=== PATIENT | male | born 1955 | race Caucasian/White ===

== ENCOUNTER 2022-03-31 09:30 | Outpatient (RCR) | payer MEDICARE, OTHER, BC, SELFPAY | END 2022-05-15 08:36 | disposition home or self-care (01) | PROVIDERS: PCP Family Medicine; Visit Provider Internal Medicine | DX: R15.1 Fecal smearing (principal) | CPT/HCPCS: 97110; 97140; 97535 ==

== ENCOUNTER 2023-12-06 09:16 | Outpatient (CLI) | payer MEDICARE, BC, SELFPAY ==
--- NOTE | 2023-12-06 11:01 | W.ANESCHARGE ---
Anesthesia Charges Start Date/Time Anesthesia Start Date: 12/06/23 Anesthesia Start Time: 10:40 Stop Date/Time Anesthesia Stop Date: 12/06/23 Anesthesia Stop Time: 11:00
== END 2023-12-06 09:17 | disposition home or self-care (01) ==
LOC: OP CLINIC 09:17
PROVIDERS: PCP Family Medicine; Visit Provider Internal Medicine Gastroenterology
DX: D50.9 Iron deficiency anemia, unspecified (principal); K31.89 Other diseases of stomach and duodenum
CPT/HCPCS: 00731; 43239; 88305; J2704

== ENCOUNTER 2025-04-18 14:42 | Emergency (ER) | payer MEDICARE, BC, SELFPAY ==
--- OUTSIDE RECORDS SUMMARY | 2025-04-18 14:44 | XMS_ITS | Encounter Summary ---
Author Organization [place] Address [address] [place] [address]. [place] [address] Care Team Providers Care Status Controller Name Role Phone Cristian Rangel MD Primary Care Provider +1- [phone] Mary Liu MD Unavailable Encounter Details Date Type Department Care Team (Late st Contact Info) Description 12/20/2024 [facility] Medical Advice [facility] [address] [address] Mary Liu MD [address] [address] Social History Tobacco Use Types Packs/Day Years Used Date Smoking Tobacco: Never Smokeless Tobacco: Never PHQ-2 Answer Date Recorded PHQ-2 Score 0 11/30/2024 Sex and Gender Information Value Date Recorded Sex Assigned at Not on file 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 Gender Identity Not on file Sexual Orientation Not on file documented as of this encounter Miscellaneous Notes * Telephone Encounter - Mary Liu MD - 12/21/2024 8:34 AM CDT Sounds good - can cancel defo documented in this encounter Plan of Treatment Not on file documented as of this encounter Visit Diagnoses Not on filedocumented in this encounter Care Teams Status Controller Relationship Specialty Start Date End Date Cristian Rangel MD [address] [facility] [address] PCP - General Family Medicine 11/06/24 Mary Liu MD [address] Kristy Reid [facility] [address] [place] [address] Assigned Surgical Provider 12/27/24 documented as of this encounter
--- OUTSIDE RECORDS SUMMARY | 2025-04-18 14:44 | XMS_ITS | Clinical Summary ---
Author Organization [employer] Address [address] [place] [address] Care Team Providers Care Electronic Equipment Repairer Name Role Phone Cristian Rangel MD Primary Care Provider +1- [phone] Allergies Active Allergy Reactions Criticality Noted Date Comments Bee Venom Protein (Honey Bee) Hives 2009 Iodinated Contrast Media Nausea And Vomiting Fentanyl Nausea And Vomiting 05/21/2010 Hymenoptera Allergenic Extract Anaphylaxis,Hives 11/13/2010 Honey Bees Latex, Natural Rubber Rash 2017 Medications apixaban (Eliquis) 5 mg tabletIndication s:PAF (paroxysmal atrial fibrillation) (HC) Take 1 Tablet (5 mg) by mouth two times daily. 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 Celiac disease 08/13/2023 Disorder of pelvis 01/23/2022 Constipation due to outlet obstruction 9 External hemorrhoids 08/17/2019 Incontinence of feces 08/17/2019 Bee sting allergy 03/25/2018 RLL Lung nodule 08/01/2010 Overview (08/01/2010): 07/24/10 MR pulmonary gram: 21 x 21mm RLL round peripherally based nodule Atrial fibrillation 06/19/2010 Overview (01/03/2024): S/P complex atrial fibrillation ablation with Dr Miller 08/05/2010 Rectal prolapse 04/28/2010 Abnormal EKG 03/17/2010 Adenomatous polyp of colon Overview (07/17/2020): Colonoscopy 05/2015 polyp repeat in 5 years Colonoscopy 07/2020 normal, repeat in 5 years SVT (supraventricular tachycardia) Overview (04/11/2010): -04/11/2010 EPS - not able to induce SVT, but onset of persistent atrial fibrillation *DCCV in EP lab unsuccessful *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) Resolved Problems Problem Noted Date Diagnosed Date Resolved Date Anticoagulation monitoring, INR range 2-3 07/20/2014 09/16/2015 Encounters Date Type Department Care Team Description 04/18/2025 Nurse Triage [facility] [address] [place] [address] Cristian Rangel MD Blood In Stool 04/18/2025 Telephone [facility] [address] [place] [address] Cristian Rangel MD Lab 04/18/2025 Telephone [facility] [address] [place] [address] Antione Miller MD Concerns 04/05/2025 Telephone [facility] [address] [place] [address] Antione Miller MD Sob 02/28/2025 Telephone [facility] [address] [place] [address] Cristian Rangel MD Follow Up (Phone call to check on how his wound is healing. ) 02/22/2025 1:00 PM CDT Nurse/Clinic Staff Only [facility] [address] [place] [address] Follow Up (Dressing change to back) 02/22/2025 Travel 02/20/2025 10:00 AM CDT Nurse/Clinic Staff Only [facility] [address] [facility] [place] [address] Follow Up (Dressing change on back) 02/20/2025 Travel 02/18/2025 Telephone [facility] [address] [facility] [address] Cristian Rangel MD Results 02/16/2025 10:00 AM CDT Nurse/Clinic Staff Only [facility] [address] [place] [address] Dressing Change 02/15/2025 Travel 02/14/2025 2:00 PM CDT Office Visit [facility] [place] [address] Cristian Rangel MD Derm Problem (Recheck lump on back - getting larger (has been there for a long time now, but it's starting to grow)) 02/14/2025 Travel 01/25/2025 Travel 01/24/2025 Travel 01/24/2025 Telephone [facility] [address] [facility] [address] Cristian Rangel MD Results 01/22/2025 2:00 PM CDT Office Visit [facility] [place] [address] Cristian Rangel MD Gi Problem (Needs confirmatory testing for giardia) 01/22/2025 Travel 01/20/2025 Travel from Last 3 Months Immunizations Immunization Administration Dates Next Due HepA-HepB (Twinrix) 10/27/2005,09/23/2005 Influenza, High-dose Quadrivalent Inactivated Influenza, IIV4 (=>6mos) MDV 06/18/2020 Influenza,CCIIV4 PRESERV FREE 08/20/2021 RSV, Recombinant ADJ Reconst ituted (Arexvy 120MCG/0.5mL) 10/11/2023 Td (Age >=7 Years) 04/10/1999 Tdap 05/03/2020,10/14/2009 Zoster (Shingrix-RZV, recombinant) 07/22/2020, Family History Medical History Relation Name Comments Other Father Sarcoidosis at age 36; he of this and heart strain at 76 Arthritis Mother Other Mother of old age at 95 Heart Disease Paternal Grandfather a t 78 Heart Disease Paternal Grandmother a t 82 Atrial fibrillation Sister 1 Awa Other Sister 1 Awa Benign tumor re moved from heart chamber AGE 52 Alcoholism Sister 2 Katheleen Depression Sister 2 Katheleen Osteoporosis Sister 4 Leonie Other Sister 4 Leonie hemorrhoids, gl uten and dairy intolerance Relation Name Status Comments Brother Krish Alive Father Mother Paternal Grandfather Paternal Grandmother Sister 1 Awa Alive Sister 2 Katheleen Alive Sister 3 Berto Alive Sister 4 Leonie Alive Social History Tobacco Use Types Packs/Day Years Used Date Smoking Tobacco: Never Smokeless Tobacco: Never Tobacco Cessation:Counseling Given: Yes Alcohol Use Standard Drinks/Week Comments Yes 2 (1 standard drink = 0.6 oz pur e alcohol) PHQ-2 Answer Date Recorded PHQ-2 TOTAL SCORE 0 07/11/2024 Social Connections Answer Date Recorded Do you often feel lonely or isolated from those around you? 0 01/21/2025 Alcohol Use Answer Date Recorded How often do you have a drink containing alcohol ? 2 02/14/2025 How many drinks containing a lcohol do you have on a typical day when you are drinking? 0 02/14/2025 How often do you have five or more drinks on one occasion? 0 02/14/2025 Financial Resource Strain Answer Date R ecorded Difficulty of Paying Living Expenses 3 01/22/2025 Difficulty of Paying Living Expenses Not on file 01/22/2025 Food Insecurity Answer Date Recorded Do you worry your food will run out before you are able to buy more? 1 01/21/2025 Transportation Needs Answer Date Record ed Does lack of transportation keep you from medica l appointments? 1 01/21/2025 Does lack of transportation keep you from work, meetings or getting things that you need? 1 01/21/2025 Housing Stability Answer Date Recorded What is your housing situation today? 1 01/21/2025 Utilities Answer Date Recorded Do you have trouble paying f or utilities (for example, heat, electricity, water, phone)? 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 Gender Identity Not on file Sexual Orientation Not on file Occupation Industry Job Start Date Job End Date Retired Not on file Not on file Not on file Obstetrics History Last Filed Vital Signs Vital Sign Reading Time Taken Comments Blood Pressure 111/65 02/14/2025 2:12 PM CDT Pulse 45 02/14/2025 2:12 PM CDT Temperature 36.2 C (97.2 F) 02/14/2025 2:12 PM CDT Respiratory Rate 16 11/21/2021 10:29 AM CDT Oxygen Saturation 100% 02/14/2025 2:12 PM CDT Inhaled Oxygen Concentration - - Weight 78.6 kg (173 lb 3.2 oz) 02/14/2025 2:12 P M CDT Height 183.6 cm (6' 0.28) 01/10/2025 9:10 AM CD T Body Mass Index 23.31 01/10/2025 9:10 AM CDT Plan of Treatment Health Maintenance Due Date Last Done Comments Pneumococcal series for age 50+ (1 of 2 - PCV) 01/13/1976 Hepatitis B series for 19+ ( 3 of 3 - Hep B Twinrix 3-dose series) 03/26/2006 10/27/2005, 09/23/2005 COVID-19 vaccine series ( season) 2024 07/30/2023, 06/04/2022, 01/19/2022, Additional history exists Influenza Vaccine (#1) 2025 08/20/2021, 2019 Depression screening for age 12+ 07/11/2025 07/11/2024, 08/13/2023, 08/13/2023, Additional history exists Medicare Wellness for age 65+ 07/12/2025 07/11/2024 Colonoscopy through age 75 07/17/202507/17, 07/17/2020, 07/17/2020, Additional history exists BMI (ht and wt on same day) for age 18+ 01/10/2026 01/10/2025, 07/11/2024, 03/15/2024, Additional history exists Lipids for age 45-75 01/22/2030 01/22/2025, 10/11/2024, 11/08/2023, Additional history exists Tetanus booster 05/03/2030 05/03/2020, 04/2010, 04/10/1999 Zoster (shingles) series for age 50+ Completed 07/22/2020, 04/25/2020 Hepatitis C screening for ag e 18-79 Completed 05/18/2023 RSV vaccine for adults or Completed 10/11/2023 Procedures Procedure Name Priority Date/Time Associated Diagnosis Comments AEROBIC BACTERIAL CULTURE, STAIN Routine 02/14/2025 3:09 PM CDT Back abscess CRYPTOSPORIDIUM GIARDIA RAPID ANTIGEN Routine 01/25/2025 10:36 AM CDT Rectal bleeding PSA TOTAL Routine 01/22/2025 2:55 PM CDT Prostate cancer screening HOMOCYSTEINE,TOTAL Routine 01/22/2025 2: 55 PM CDT Elevated homocysteine CBC WITH AUTO DIFFERENTIAL Routine 01/22/2025 2:55 PM CDT Other iron deficiency anemia VITAMIN D 25 (DEFICIENCY) Routine 01/22/2025 2:55 PM CDT Vitamin D deficiency LIPID PANEL W REFLEX MEASURED LDL Routine 01/22/2025 2:55 PM CDT Other hyperlipidemia ANTI HCV Routine 05/18/2023 9:08 AM CDT Unexplained weight loss COLONOSCOPY SCREENING Routine 07/17/2020 9:00 AM CONSTRUCTION RIGGER History of colon polyps from Last 3 Months or Most Recently Relevant to Health Maintenance Results * (ABNORMAL) AEROBIC BACTERIAL CULTURE, STAIN (02/14/2025 3:09 PM CDT) CULTURE RESULT(A) 02/19/2025 10:35 AM CDT [facility] TRAL LABORATORY CULTURE 1+ Mixed luba present 02/19/2025 10:35 AM CDT [facility] TRAL LABORATORY GRAM STAIN 3+ Epithelial cells 02/19/2025 10:35 AM CDT [facility] TRAL LABORATORY GRAM STAIN 2+ RBCs 02/19/2025 10:35 AM CDT [facility] TRAL LABORATORY GRAM STAIN 2+ PMNs 02/19/2025 10:35 AM CDT [facility] TRA LABORATORY GRAM STAIN 2+ Gram Positive Cocci 02/19/2025 10:35 AM CDT [facility] LABOR[facility]ORY Other (Other) Non-Blood / Unknown 02/14/2025 3:09 PM CDT 02/14/2025 3:09 PM CDT Narrative [facility] - 02/19/2025 10:35 AM CDT Mixed luba, No Staphylococcus aureus, beta- Streptococcus, Streptococcus pneumoniae, or Pseudomonas aeruginosa. us Cristian Rangel MD MICROBIOLOGY Final Resu lt [facility] [address] [place] [address], * CRYPTOSPORIDIUM GIARDIA RAPID ANTIGEN (01/25/2025 10:36 AM CDT) [facility] GIARDIA AND CRYPTOSPORIDIUM ANTIGEN PANEL SEE NOTE [facility] Comment: CRYPTOSPORIDIUM ANTIGEN, EIA Micro Number: [id number] Test Status: Final Specimen Source: Stool Specimen Quality: Adequate Cryptosporidium: Not Detected Reference Range: Not Detected NOTE: Due to intermittent shedding, one negative sample does not necessarily rule out the presence of a parasitic infection. GIARDIA AND CRYPTOSPORIDIUM ANTIGEN PANEL SEE NOTE [facility] Comment: GIARDIA AG, EIA, STOOL Micro Number: [id number] Test Status: Final Specimen Source: Stool Specimen Quality: Adequate Giardia Result 1: Not Detected Reference Range: Not Detected NOTE: Due to intermittent shedding, one negative sample does not necessarily rule out the presence of a parasitic infection. Stool STOOL SPECIMEN / Unknown 01/25/2025 10:36 AM CDT 01/25/2025 10:36 AM CDT Narrative [facility] - 01/30/2025 10:13 AM CDT SPLIT 01/22/2025 FROM [id number] us Cristian Rangel MD MICROBIOLOGY Final Resu lt [place] [address] [address], [place] [phone] [facility] [address] [place] [address] * (ABNORMAL) LIPID PANEL W REFLEX MEASURED LDL (01/22/2025 2:55 PM CDT) [facility] CHOLESTEROL, TOTAL 204(H) <200 mg/dL [facility] HDL CHOLESTEROL 70 > OR = 40 mg/dL [facility] TRIGLYCERIDES 44 <150 mg/dL [facility] LDL-CHOLESTEROL 121(H) mg/dL (calc) [facility] Comment: Reference range: <100 Desirable range <100 mg/dL for primary prevention; <70 mg/dL for patients with CHD or diabetic patients with > or = 2 CHD risk factors. LDL-C is now calculated using the Lovely calculation, which is a validated novel method providing better accuracy than the Friedewald equation in the estimation of LDL-C. Santino SS et al. DAVID. 2013;310(19): 2977-9329 (http://education.[employer]/faq/HFL710) CHOL/HDLC RATIO 2.9 <5.0 (calc) [facility] NON HDL CHOLESTEROL 134(H) <130 mg/dL (calc) [facility] Comment: For patients with diabetes plus 1 major ASCVD risk factor, treating to a non-HDL-C goal of <100 mg/dL (LDL-C of <70 mg/dL) is considered a therapeutic option. Blood BLOOD SPECIMEN / Unknown 01/22/2025 2:55 PM CDT 01/22/2025 2:57 PM CDT Narrative [facility] - 01/23/2025 4:43 AM CDT FASTING:YES COLLECTION KIT GIVEN TO PATIENT. PATIENT ADVISED TO RETURN. FASTING: YES us Cristian Rangel MD CHEMISTRY Final Resu lt [facility] [address] [place] [address], [facility] [address] [place] [address] * VITAMIN D 25 (DEFICIENCY) (01/22/2025 2:55 PM CDT) Pathologist [facility] VITAMIN D,25-OH,TOTAL,IA 75 30 - 100 ng/mL [facility] Comment: Vitamin D Status 25-OH Vitamin D: Deficiency: <20 ng/mL Insufficiency: 20 - 29 ng/mL Optimal: > or = 30 ng/mL For 25-OH Vitamin D testing on patients on D2-supplementation and patients for whom quantitation of D2 and D3 fractions is required, the QuestAssureD(TM) 25-OH VIT D, (D2,D3), LC/MS/MS is recommended: order code 28891 (patients >2yrs). See Note 1 Note 1 For additional information, please refer to http://education.[employer]/faq/OAK989 (This link is being provided for informational/ educational purposes only.) Blood BLOOD SPECIMEN / Unknown 01/22/2025 2:55 PM CDT 01/22/2025 2:57 PM CDT Narrative [facility] - 01/23/2025 6:53 AM CDT FASTING:YES COLLECTION KIT GIVEN TO PATIENT. PATIENT ADVISED TO RETURN. FASTING: YES us Cristian Rangel MD SEND OUTS Final Resu lt [place] [facility] [address] [place] [address], [facility] [address] [place] [address] * (ABNORMAL) CBC AND DIFFERENTIAL (01/22/2025 2:55 PM CDT) [facility] WHITE BLOOD CELL COUNT 3.7(L) 3.8 - 10.8 Thousand/u L [facility] RED BLOOD CELL COUNT 3.96(L) 4.20 - 5.80 Million/uL [facility] HEMOGLOBIN 11.8(L) 13.2 - 17.1 g/dL [facility] HEMATOCRIT 36.2(L) 38.5 - 50.0 % [facility] MCV 91.4 80.0 - 100.0 fL [facility] MCH 29.8 27.0 - 33.0 pg [facility] MCHC 32.6 32.0 - 36.0 g/dL [facility] Comment: For adults, a slight decrease in the calculated MCHC value (in the range of 30 to 32 g/dL) is most likely not clinically significant; however, it should be interpreted with caution in correlation with other red cell parameters and the patient's clinical condition. RDW 12.0 11.0 - 15.0 % [facility] PLATELET COUNT 235 140 - 400 Thousand/u L [facility] MPV 9.8 7.5 - 12.5 fL [facility] ABSOLUTE NEUTROPHILS 1,898 1,500 - 7,800 cells/uL [facility] ABSOLUTE LYMPHOCYTES 1,228 850 - 3,900 cells/uL [facility] ABSOLUTE MONOCYTES 385 200 - 950 cells/uL [facility] ABSOLUTE EOSINOPHILS 170 15 - 500 cells/uL [facility] ABSOLUTE BASOPHILS 19 0 - 200 cells/uL [facility] NEUTROPHILS 51.3 % [facility] LYMPHOCYTES 33.2 % [facility] MONOCYTES 10.4 % [facility] EOSINOPHILS 4.6 % [facility] BASOPHILS 0.5 % [facility] Blood BLOOD SPECIMEN / Unknown 01/22/2025 2:55 PM CDT 01/22/2025 2:57 PM CDT Narrative [facility] - 01/23/2025 4:16 AM CDT FASTING:YES COLLECTION KIT GIVEN TO PATIENT. PATIENT ADVISED TO RETURN. FASTING: YES us Cristian Rangel MD HEMATOLOGY Final Resu lt [facility] [employer] [facility] [address] [place] [address], [place] [phone] [facility] [address] [place] [address] * PSA TOTAL (DIAGNOSTIC) (01/22/2025 2:55 PM CDT) PSA, TOTAL 0.37 < OR = 4.00 ng/mL [facility] Comment: The total PSA value from this assay system is standardized against the WHO standard. The test result will be approximately 20% lower when compared to the equimolar-standardized total PSA (Greg Zakiya). Comparison of serial PSA results should be interpreted with this fact in mind. This test was performed using the Siemens chemiluminescent method. Values obtained from different assay methods cannot be used interchangeably. PSA levels, regardless of value, should not be interpreted as absolute evidence of the presence or absence of disease. Blood BLOOD SPECIMEN / Unknown 01/22/2025 2:55 PM CDT 01/22/2025 2:57 PM CDT Narrative [facility] - 01/23/2025 6:53 AM CDT FASTING:YES COLLECTION KIT GIVEN TO PATIENT. PATIENT ADVISED TO RETURN. FASTING: YES us Cristian Rangel MD CHEMISTRY Final Resu lt [place] [facility] [address] [place] [address], [facility] [address] [place] [address] * HOMOCYSTEINE,TOTAL (01/22/2025 2:55 PM CDT) HOMOCYSTEINE 7.9 < or = 15.2 umol/L [facility] Comment: Homocysteine is increased by functional deficiency of folate or vitamin B12. Testing for methylmalonic acid differentiates between these deficiencies. Other causes of increased homocysteine include renal failure, folate antagonists such as methotrexate and phenytoin, and exposure to nitrous oxide. Garrick Rodriguez et al., [employer] Med. 1999;131(5):331-9. Blood BLOOD SPECIMEN / Unknown 01/22/2025 2:55 PM CDT 01/22/2025 2:57 PM CDT Narrative [facility] - 01/23/2025 7:51 PM CDT FASTING:YES COLLECTION KIT GIVEN TO PATIENT. PATIENT ADVISED TO RETURN. FASTING: YES Cristian Rangel MD CHEMISTRY Final Resu lt Performing Organization Address City/[facility]/ZIP Co de Phone Number [facility] [address] [place] [address], [facility] [address] [place] [address] * ANTI HCV (05/18/2023 9:08 AM CDT) Pathologist [facility] HEPATITIS C ANTIBODY Non-Reacti ve Non-React radha 05/19/2023 2:34 PM CDT [facility] Comment:Please note, per www .CDC.gov: If a patient is known to be at high risk of HCV infection, or is symptomatic, and the physician's suspicion of HCV infection is high, HCV RNA testing is often employed and is of diagnostic value, even after an initial negative anti-HCV test result. Blood BLOOD SPECIMEN / Unknown Venipuncture / Unknown 05/18/2023 9:08 AM CDT 05/18/2023 9:08 AM CDT Cristian Rangel MD SEND OUTS Final Resu lt Performing Organization Address City/[facility]/ZIP Co de Phone Number [facility] SENDOUT INTERNAL ZIP [phone] [place] [id number] * COLONOSCOPY SCREENING (07/17/2020 9:00 AM CONSTRUCTION RIGGER) Cristian Rangel MD GI PROCEDURE ORD Final Res ult from Last 3 Months or Most Recently Relevant to Health Maintenance Insurance [employer] BLUE MR PB ONLY Advance Directives Documents on File Type Date Recorded Patient Phlebotomy Lab Assistant Expl anation Healthcare Directive 04/11/2010 * Full Code (Latest Code Status on File) Date Activated Date Inactivated Comments 11/05/2021 12:47 PM 11/06/2021 1:33 PM Question Answer Comments Code Status Discussion: Other (specify in commen ts): * Full Code Date Activated Date Inactivated Comments 10/08/2021 9:39 AM 10/08/2021 1:34 PM Question Answer Comments Code Status Discussion: Other * Full Code Date Activated Date Inactivated Comments 08/05/2010 6:52 AM 08/06/2010 2:28 PM * Full Code Date Activated Date Inactivated Comments 04/11/2010 6:38 AM 04/12/2010 4:36 PM Care Teams Electronic Equipment Repairer Relationship Specialty Start Date End Date Cristian Rangel [facility] [address] P[facility] - General Family Practice 08/02/23
--- OUTSIDE RECORDS SUMMARY | 2025-04-18 14:44 | XMS_ITS | Clinical Summary ---
Author Organization [facility] Address [address] [place] [id number] Care Team Providers Care Ground Crew Chief Name Role Phone Elsewhere, Pcp Primary Care Provider Unavailabl e Source Comments Patient records contain information from all sites at [facility]. For routine questions regarding patient records, call [phone] during business hours, M-F 8:00 AM - 5:00 PM Central Time. Record requests for emergency care only can be directed to [phone] at any time.[facility] Allergies Active Allergy Reactions Criticality Noted Date Comments Bee Venom Protein (Honey Bee) Hives (Reselect Reaction) 07/09/2010 Fentanyl Nausea Only,Nausea A nd Vomiting 05/21/2010 Hymenoptera Allergenic Extract Anaphylaxis,Hives (Reselect Reaction) 11/13/2010 Honey Bees Iodinated Contrast Media GI intolerance 010 Latex, Natural Rubber Rash 2017 Medications * This document contains information received from the source organization and may not represent a complete record from that organization. apixaban (ELIQUIS) 5 mg tablet Take 5 mg by mouth 2 (two) times a day. 12/08/2021 Active Active Problems Problem Noted Date Diagnosed Date Dysfunction Pelvic Floor 01/23/2022 Atrial Fibrillation Unspecified 01/23/2022 Hemorrhoids External 08/17/2019 Dysfunction Constipation Outlet 08/17/2019 Incontinence Fecal 08/17/2019 Family History Medical History Relation Name Comments Sarcoidosis of lung Father Clotting disorder Mother WESLEY Alzheimers disease Mother's Sister Clotting disorder Sister 1 RACHELL Other cancer Sister 1 RACHELL Skin cancer (no n-melanoma) Skin cancer Sister 1 RACHELL Clotting disorder Sister 2 GUILLERMO Osteoporosis Sister 2 GUILLERMO Alcohol abuse Sister 3 BEAN Alcoholic Clotting disorder Sister 3 BEAN Clotting disorder Sister 4 DEE Relation Name Status Comments Brother Alive Father Mother WESLEY Alive Mother's Sister Sister 1 RACHELL Alive Sister 2 GUILLERMO Alive Sister 3 BEAN Alive Sister 4 DEE Alive Son 1 Alive Son 2 Alive Social History Tobacco Use Types Packs/Day Years Used Date Smoking Tobacco: Never Smokeless Tobacco: Never Tobacco Cessation:Counseling Given: Not Answered Alcohol Use Standard Drinks/Week Comments Yes 6 (1 standard drink = 0.6 oz pur e alcohol) [facility] Utilities Answer Date Recorded In the past 12 months has e EM[employer]ZE, gas, oil, or water [employer] threatened to shut off services in your home? No 07/11/2024 Humiliation, Afraid, Rape, and Kick questionnair e Answer Date Recorded Within the last year, have y ou been afraid of your partner or ex-partner? No 12/25/2022 Within the last year, have y ou been humiliated or emotionally abused in other ways by your partner or ex-partner? No Within the last year, have y ou been kicked, hit, slapped, or otherwise physically hurt by your partner or ex-partner? No 12/25/2022 Within the last year, have y ou been raped or forced to have any kind of sexual activity by your partner or ex-partner? No 12/25/2022 Hunger Vital Sign Answer Date Recorded Within the past 12 months, y ou worried that your food would run out before you got the money to buy more. Never true 07/11/20 24 Within the past 12 months, t he food you bought just didn't last and you didn't have money to get more. Never true 07/11/2024 PRAPARE - Transportation Answer Date Re corded In the past 12 months, has l ack of transportation kept you from medical appointments or from getting medications? No 01/2024 In the past 12 months, has l ack of transportation kept you from meetings, work, or from getting things needed for daily living? No 07/11/2024 Housing Stability Answer Date Recorded What is your living situation today? I have a [facility] place to live 07/11/2024 Education Answer Date Recorded What is the highest level of school you have completed or the highest degree you have received? 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 Gender Identity Male 06/08/2019 9:03 PM CDT Sexual Orientation Choose not to disclose 2018 9:03 PM CDT Last Filed Vital Signs Vital Sign Reading Time Taken Comments Blood Pressure 95/52 08/04/2024 9:12 AM RUBBER WASHER Pulse 55 08/04/2024 9:12 AM RUBBER WASHER Temperature 36.8 C (98.2 F) 01/23/2022 1:57 PM CDT Respiratory Rate - - Oxygen Saturation - - Inhaled Oxygen Concentration - - Weight 80.6 kg (177 lb 11.1 oz) 023 12:54 PM CDT in shoes Height 185.9 cm (6' 1.19) 03/23/2023 1:46 PM CD T Body Mass Index 23.32 03/23/2023 12:54 PM CDT Plan of Treatment Scheduled Procedures Name Priority Associated Diagnoses Date/Ti me CONSTRUCTION COLOSTOMY Dysfunction Pelvic Floor Health Maintenance Due Date Last Done Comments CT Colonography 1955 Cologuard 1955 Hepatitis C Screening 1955 Pneumococcal vaccine (50+ years) (1 of 1 - PCV) 2007 COVID-19 Vaccine ( season) 2024 07/30/2023, 06/04/2022, 01/19/2022, Additional history exists Depression Screening (Annual PHQ-2) 09/06/2024 Fall Risk Screen (Annual) 09/06/2024 Influenza Vaccine (#1) 2025 , 08/20/2021, 06/18/2020 Colonoscopy 07/17/2025 07/17/2020 Colorectal Cancer Surveillance 07/17/2025 Fasting Glucose for Diabetes Screening 10/11/2027 10/11/2024, 07/20/2023, 05/18/2023, Additional history exists DTaP,Tdap,and Td Vaccines (3 - Td or Tdap) 05/03/2030 05/03/2020, 10/14/2009, 04/10/1999 Zoster Vaccines Completed 07/22/2020, 04/25/2020 RSV vaccine - (32-36 weeks) or 60+ years Completed 10/11/2023 IPV Vaccines Aged Out No longer eligi ble based on patient's age to complete this topic Goals Goal Patient Goal Type Associated Problems Recent Progress Patient-Stated? Author Surgical Readiness and Recovery Care Plan Care Plan Surgical Readiness and Recovery Care Plan Joanne Gorman RLoidaN. Additional Health Concerns Active Problems Noted Date Diagnosed Date Surgical Readiness and Recovery Care Plan 2023 Insurance MEDICARE [facility] Advance Directives For more information, please contact: [phone] Documents on File Type Date Recorded Patient Job Molder Expl anation Advance Directives 07/09/2010 12:00 AM Leg acy document. See document viewer. Care Teams Ground Crew Chief Relationship Specialty Start Date End Date Elsewhere, Pcp PCP - General Internal Medicine 01/13/23
--- OUTSIDE RECORDS SUMMARY | 2025-04-18 14:44 | XMS_ITS | Clinical Summary ---
Author Organization [facility] Address [address] [place] [address] Care Team Providers Care Utilization Management Manager Name Role Phone Cristian Rangel MD Primary Care Provider [phone] Mary Liu MD Unavailable [phone] Allergies Active Allergy Reactions Criticality Noted Date Comments Bee Venom Hives 07/09/2010 Fentanyl Nausea,Nausea and Vomiting 05/21/2010 Iodinated Contrast Media GI Disturbance, Nausea and Vomiting 04/11/2010 Latex Rash Low 2017 Wasp Venom Protein Anaphylaxis,Hives High 11/13/2010 Honey Bees Medications ELIQUIS ANTICOAGULANT 5 MG tablet Take 5 mg by mouth. Active Multiple Vitamin (MULTIVITAMIN PO) Take by mouth. Active NONFORMULARY GI Revive, using 1 scoop w/butyrate liquid in water Active UNABLE TO FIND MEDICATION NAME: Brosweilia Active UNABLE TO FIND MEDICATION NAME: Calcium glucurate Active Cholecalciferol (VITAMIN D-3 PO) Take by mouth. Active methylPREDNISolon e (MEDROL) 32 MG tabletIndications :Contrast media allergy Take 1 tablet (32 mg) by mouth daily. 2 hours prior to the procedure with IV contrast 1 tablet 5 Active methylPREDNISolon e (MEDROL) 32 MG tabletIndications :Contrast media allergy Take 1 tablet (32 mg) by mouth daily. 12 hours prior to the procedure with IV contrast 1 tablet 5 Active diphenhydrAMINE (BENADRYL) 50 MG capsuleIndication s:Contrast media allergy Take 1 capsule (50 mg) by mouth every 6 hours as needed for itching or allergies. Administer 1 hour pre - IV contrast injection and patient must have a auto carrier driver. 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 Gender Identity Not on file Sexual Orientation Not on file Last Filed Vital Signs Vital Sign Reading Time Taken Comments Blood Pressure 90/46 11/30/2024 1:38 PM CDT Pulse 58 11/30/2024 1:38 PM CDT Temperature - - Respiratory Rate 16 11/30/2024 1:38 PM CDT Oxygen Saturation - - Inhaled Oxygen Concentration - - Weight 78 kg (172 lb) 11/30/2024 1:38 PM CDT Height 184.2 cm (6' 0.5) 11/30/2024 1:38 PM CDT Body Mass Index 23.01 11/30/2024 1:38 PM CDT Plan of Treatment Health Maintenance Due Date Last Done Comments ADVANCE CARE PLANNING 1955 ANNUAL REVIEW OF HM ORDERS 1957 CT COLONOGRAPHY 1957 DIABETES SCREENING 1957 FIT 1957 FLEX SIG 1957 sDNA (Cologuard) 1957 LIPID 1997 PNEUMOCOCCAL VACCINE 50+ YEARS (1 of 1 - PCV) 2007 FALL RISK ASSESSMENT 2022 COVID-19 VACCINE ( season) 2024 07/30/2023, 06/04/2022, 01/19/2022, Additional history exists INFLUENZA VACCINE (#1) 2025 , 08/20/2021, 06/18/2020 MEDICARE ANNUAL WELLNESS VISIT 07/11/2025 07/11/2024, 06/07/2020 DTAP/TDAP/TD VACCINE (3 - Td or Tdap) 05/03/2030 05/03/2020, 10/14/2009, 04/10/1999 COLONOSCOPY 09/05/2034 09/05/2024, 08/08, 07/17/2020 COLORECTAL CANCER SCREENING 09/05/2034 ZOSTER VACCINE Completed 07/22/2020, 04/25/2020 HEPATITIS C SCREENING Completed 05/18/2023 RSV VACCINE Completed 10/11/2023 PHQ-2 (once per calendar year) Completed 11/30/2024 HPV VACCINE (No Doses Required) Completed MENINGITIS VACCINE Aged Out No longer eligible based on patient's age to complete this topic Procedures Procedure Name Priority Date/Time Associated Diagnosis Comments COLONOSCOPY - HIM SCAN 09/05/2024 12:00 AM SEISMOGRAPH SUPERVISOR from Last 3 Months or Most Recently Relevant to Health Maintenance Results * Colonoscopy - HIM Scan (09/05/2024 12:00 AM SEISMOGRAPH SUPERVISOR) 09/05/2024 us Provider Outside PROCEDURES Final Result from Last 3 Months or Most Recently Relevant to Health Maintenance Insurance [facility] MEDICARE BCBS [facility] MEDICARE Care Teams Utilization Management Manager Relationship Specialty Start Date End Date Cristian Rangel MD [address] [place] [address] PCP - General Family Medicine 11/06/24 Mary Liu MD [id number] [facility] [address] [place] [address] Assigned Surgical Provider 12/27/24
[2025-04-18 15:00] VITALS: BP 100/57; PULSE 58; RESP 18; TEMP 36.9; O2SAT 98; BMI 22.1
--- NOTE | 2025-04-18 15:12 | ED.GENADULT ---
HPI - General Adult General Chief complaint: Unspecified Complaint, Adult Stated complaint: needs hemoglobin checked Time Seen by Provider: 04/18/25 15:12 History of Present Illness HPI narrative: This 70-year-old male has a recurrent problem with hemorrhoids and hemorrhoidal bleeding. He states that he has had more bleeding recently and comes in simply to have his hemoglobin checked. He does not report any lightheadedness or shortness of breath. He has had colonoscopies and there is no other findings other than hemorrhoids that occasionally bleed. These are nonpainful and internal hemorrhoids. He does not report any bulging or prolapse. Related Data Home Medications ?Medication ?Instructions ?Recorded ?Confirmed apixaban 5 mg tablet (Eliquis) 5 mg PO BID 04/18/25 04/18/25 Allergies Allergy/AdvReac Type Severity Reaction Status Date / Time latex Allergy Unknown Verified 04/18/25 15:05 red dye Allergy Unknown Verified 04/18/25 15:05 Review of Systems Status of ROS: Reports: 10 or more systems reviewed and unremarkable except as noted in History and below Narrative: Constitutional: No fevers, no weight gain or loss. Eyes: No discharge. No vision changes. HENT: No congestion, no sore throat, no ear pain. Cardiovascular: No chest pain, no palpitations. Respiratory: No shortness of breath, no wheezes, no cough. Gastrointestinal: No abdominal pain, no vomiting, no diarrhea. Bright red rectal bleeding as described above. Genitourinary: No dysuria, no hematuria. Musculoskeletal: Normal range of motion. Skin: No rashes, no pruritis. Neurological: No dizziness, weakness, sensory change, speech change. Endo/Heme/Allergies: No bruising or bleeding. No polydipsia. Pysch: no suicidality, no anxiety, no insomnia. All other systems reviewed and are negative. Exam Narrative: Exam Narrative: Constitutional: Well-developed, well-nourished, no acute distress. HEENT: Normocephalic, atraumatic. Neck: Normal range of motion. Nontender. Supple. Heart: Intact distal pulses. Lungs: No chest discomfort. No wheezes, rhonchi, or rales. Abdomen: Nontender. Back: Normal range of motion. Extremities: Normal range of motion. No injury. Skin: Intact. No rash. Warm. No erythema or pallor. Neurologic: No altered sensation. No weakness. Alert and oriented. Psychiatric: No suicidality. No anxiety or depression. No insomnia. Nursing notes and vitals signs are reviewed. Const: Vital Signs, click to edit/add: Vital Signs - 24 hr 04/18/25 15:00 Temperature 98.5 F Pulse Rate [Right Pulse Oximeter] 58 L Respiratory Rate 18 Blood Pressure [Ri ght Upper Arm] 100/57 L Pulse Oximetry 98 Oxygen Delivery Me thod Room Air Course Vital Signs Vital signs: Initial Vital Signs Temperature 98.5 F 04/18/25 15:00 Temperature Source Temporal Artery Scan 04/18/25 15:00 Pulse Rate 58 L 04/18/25 15:00 Pulse Rhythm Regular 04/18/25 15:00 Pulse Strength 3+ Normal 04/18/25 15:00 Respiratory Rate 18 04/18/25 15:00 Blood Pressure 100/57 L 04/18/25 15:00 Blood Pressure Mean 71 04/18/25 15:00 Blood Pressure Position Sitting 04/18/25 15:00 Pulse Oximetry 98 04/18/25 15:00 Oxygen Delivery Method Room Air 04/18/25 15:00 Vital Signs Temperature 98.5 F 04/18/25 15:00 Pulse Rate 58 L 04/18/25 15:00 Respiratory Rate 18 04/18/25 15:00 Blood Pressure 100/57 L 04/18/25 15:00 Pulse Oximetry 98 04/18/25 15:00 Oxygen Delivery Method Room Air 04/18/25 15:00 Temperature 98.5 F 04/18/25 15:00 Pulse Rate 58 L 04/18/25 15:00 Respiratory Rate 18 04/18/25 15:00 Blood Pressure 100/57 L 04/18/25 15:00 Pulse Oximetry 98 04/18/25 15:00 Oxygen Delivery Method Room Air 04/18/25 15:00 Medical Decision Making MDM Narrative Medical decision making narrative: This patient comes in simply to have his hemoglobin checked his he has had more bright red blood per rectum related to his hemorrhoids. He does not report any symptoms and arrives here with normal vital signs. He has followed with [facility] regarding this matter and has had colonoscopies with negative results otherwise. He declined any need for visual examination of his rectum and anus at this time. Discharge Plan Discharge Clinical Impression: Internal bleeding hemorrhoids Patient Disposition: Home, Self-Care Condition: Stable Additional Instructions: Keep stool soft and use fiber additives as directed. Follow up with MD or return if symptoms are persistent or worsening. Prescriptions: No Action Eliquis 5 mg tablet 5 mg PO BID Follow Up/Referrals: Cristian Rangel MD [Primary Care Provider, Family Practice] Stand Alone Forms: Smarter Pockets Info Instructions
[2025-04-18 15:34] LABS: Hematocrit 32.0 % (37.0-53.0); Hemoglobin* 10.2 gm/dL (13.5-17.5); Immature Granulocytes Pct Auto 0.5 %; Mean Corpuscular HGB Conc 32 gm/dL (32-36); Mean Corpuscular Hemoglobin 29 pg (26-34); Mean Corpuscular Volume 90 fL (80-100); RDW Coefficient of Variation % 13.1 % (11.5-15.5); Red Blood Count 3.54 m/uL (4.30-5.90); White Blood Count* 3.73 K/uL (4.50-11.00)
[2025-04-18 15:53] LABS: Immature Granulocytes Abs Auto 0.00 K/uL (0.00-0.30); Lymphocytes Absolute Auto 1.10 K/uL (0.90-2.90); Slide Review Reflex No
== END 2025-04-18 16:01 | disposition home or self-care (01) ==
LOC: ED 15:46
PROVIDERS: Emergency Provider Emergency Medicine Emergency Medical Services; PCP Family Medicine
DX: K64.9 Unspecified hemorrhoids (principal)
CPT/HCPCS: 36415; 85025; 99283; 99284

== ENCOUNTER 2025-06-09 09:34 | Outpatient (CLI) | payer MEDICARE, BC, SELFPAY | END 2025-06-09 09:35 | disposition home or self-care (01) | LOC: NFLDREF 06-10 21:36 | PROVIDERS: PCP Family Medicine; Referring Provider Family Medicine | DX: N30.00 Acute cystitis without hematuria (principal) | CPT/HCPCS: 87086 ==